=== PATIENT | male | born 1950 | race Caucasian/White ===

== ENCOUNTER 2023-07-31 11:12 | Outpatient (OUT) | payer MEDICARE, OTHER, SELFPAY ==
[2023-07-31 11:49] LABS: Estimated Average Glucose 169 mg/dL; Glycohemoglobin A1C 7.5 % (4.5-6.2)
[2023-07-31 12:10] LABS: Prostate Specific Antigen Scrn 1.56 ng/mL (<=4.00)
== END 2023-07-31 11:13 | disposition home or self-care (01) ==
PROVIDERS: PCP Family Medicine; Visit Provider Family Medicine
DX: E11.9 Type 2 diabetes mellitus without complications (principal); Z12.5 Encounter for screening for malignant neoplasm of prostate
CPT/HCPCS: 36415; 83036; G0103

== ENCOUNTER 2023-08-23 10:18 | Outpatient (OUT) | payer MEDICARE, OTHER, SELFPAY ==
--- NOTE | 2023-08-23 | CT_ITS ---
[address] [address] Patient Name: KEYA YOUSSEF MRN: [id number] date: 1950 Sex: M Assigned Patient Location: CT Current Patient Location: Accession/Order Number: [id number] Exam Date: 08/23/2023 10:34 Report Date: 08/24/2023 07:06 At the request of: RY JACKSON Procedure: CT lung screening low-dose EXAMINATION: CT lung screening low-dose HISTORY: HISTORY OF TOBACCO DEPENDENCE COMPARISON: No relevant comparison available. TECHNIQUE: Axial, Coronal, and Sagittal images were created without the administration of IV contrast material. Dose reduction techniques were achieved by using automated exposure control and/or adjustment of mA and/or kV according to patient size and/or use of iterative reconstruction technique. FINDINGS: LUNGS: 12 mm nodule within anterior medial right upper lobe at level of aortic arch. Stable 4 mm nodule within left lower lobe superior segment. PLEURA: No mass, effusion, or pneumothorax. VASCULATURE: No abnormality. CRISTINA: No mass or pathologic adenopathy. MEDIASTINUM: No mass or pathologic adenopathy. CARDIAC: No enlargement, pericardial thickening, or significant calcification. AORTA: No aneurysm or dissection. CHEST WALL: No mass or axillary adenopathy BONES: No bone lesion or fracture. LIMITED ABDOMEN: No suspicious findings. Limited images of the upper abdomen. OTHER: Negative. CT/CT lung screening low-dose IMPRESSION: 1. Lung-RADS Category 4B- Suspicious. Findings for which additional diagnostic testing and/ or tissue sampling is recommended. Chest CT with or without contrast, PET/CT and/ or tissue sampling depending on the * probability of malignancy and comorbidities. PET/CT may be used when there is a >= 8 mm solid component. 2. PET imaging recommended for evaluation of new 12 mm nodule within right upper lobe; neoplasm versus granulomatous reaction. Findings are to be called to the ordering provider. Electronically authenticated by: ILAN LEGER Date: 08/24/2023 07:06
== END 2023-08-23 10:19 | disposition home or self-care (01) ==
LOC: CT 10:18
PROVIDERS: PCP Family Medicine; Visit Provider Family Medicine
DX: Z87.891 Personal history of nicotine dependence (principal); R91.8 Other nonspecific abnormal finding of lung field
CPT/HCPCS: 71271